=== PATIENT | female | born 1965 | race Caucasian/White ===

== ENCOUNTER 2020-12-22 16:30 | Outpatient (CLI) | payer BC, SELFPAY ==
[2020-12-22 16:45] LABS: Hematocrit 36.5 % (35.0-49.0); Mean Corpuscular HGB Conc 32.9 g/dL (32.0-36.0); Mean Corpuscular Hemoglobin 30.5 pg (27.0-31.0); Mean Corpuscular Volume 92.9 fL (78.0-102.0); Mean Platelet Volume 9.9 fl (9.2-11.8); Platelet Count Result 263 K/mm3 (150-420); Red Blood Count 3.93 M/mm3 (4.20-5.40); Red Cell Distribution Width 12.3 % (11.6-14.4); White Blood Count 5.9 K/mm3 (4.8-10.8)
[2020-12-22 17:21] LABS: Alanine Aminotransferase 22 U/L (14-59); Albumin Level 3.9 g/dL (3.4-5.0); Alkaline Phosphatase 73 U/L (46-116); Anion Gap 10 mmol/L (8-16); Aspartate Amino Transferase 10 U/L (15-37); Bilirubin,Total 0.2 mg/dL (0.00-1.00); Blood Urea Nitrogen 16 mg/dL (7-18); Calcium 9.2 mg/dL (8.5-10.1); Carbon Dioxide 28 mmol/L (21-32); Chloride 106 mmol/L (98-108); Cholesterol 217 mg/dL (0-200); Estimated Glomerular Filt Rate > 60; Glucose 93 mg/dL (70-99); HDL Direct 61 mg/dL (40-60); LDL Cholesterol Calculated 126 mg/dL (<130); Osmolality Calculated 299 mOsm/kg (285-295); Sodium 144 mmol/L (136-145); Total Protein 6.8 g/dL (6.4-8.2); Triglycerides 149 mg/dL (0-150)
[2020-12-22 17:31] LABS: Thyroid Stimulating Hormone Reflex 0.45 u/IU/mL (0.36-3.74)
== END 2020-12-22 16:31 | disposition home or self-care (01) ==
LOC: CHSLAB 16:32
PROVIDERS: PCP Family Medicine; Visit Provider Family Medicine
DX: Z00.00 Encounter for general adult medical examination without abnormal findings (principal); E11.9 Type 2 diabetes mellitus without complications
CPT/HCPCS: 36415; 80053; 80061; 84443; 85027

== ENCOUNTER 2021-03-24 17:13 | Outpatient (NON) | payer BC, SELFPAY | END 2021-03-24 17:14 | disposition home or self-care (01) | LOC: CHSLAB 17:15 | PROVIDERS: Visit Provider Family Medicine | DX: N39.0 Urinary tract infection, site not specified (principal) | CPT/HCPCS: 87086; 87088 ==

== ENCOUNTER 2021-03-29 14:48 | Outpatient (CLI) | payer BC, SELFPAY ==
--- NOTE | ~2021-03-29 | XR_ITS ---
EXAMINATION: XR shoulder RT min 2V DATE: 03/29/2021 15:13 INDICATION: Right shoulder pain. TECHNIQUE: 5 views of right shoulder were obtained. COMPARISON: None. FINDINGS: Bone alignment is normal. No fracture. Glenohumeral joint is normal. There is mild acromioc lavicular joint osteoarthritis. There are airspace opacities at right lung apex. There are changes of fusion procedure in cervical spine. IMPRESSION: 1. Mild osteoarthritis of the acromioclavicular joint. 2. Airspace opacities at right lung apex, which may be scarring or less likely malignancy. Chest radi ographs are recommended. Reviewed, dictated and finalized at location A. PING PRESS OPERATOR IMPRESSION: 1. Mild osteoarthritis of the acromioclavicular joint. 2. Airspace opacities at right lung apex, which may be scarring or less likely malignancy. Chest radiographs are recommended.
== END 2021-03-29 14:49 | disposition home or self-care (01) ==
LOC: CHSIMG 14:49
PROVIDERS: PCP Family Medicine; Visit Provider Family Medicine
DX: M25.511 Pain in right shoulder (principal)
CPT/HCPCS: 73030

== ENCOUNTER 2021-05-31 14:44 | Outpatient (CLI) | payer BC, SELFPAY ==
--- NOTE | ~2021-05-31 | XR_ITS ---
XR elbow RT 2V DATE: 05/31/2021 15:09 INDICATION: Right posterior elbow pain TECHNIQUE: AP and lateral views COMPARISON: None FINDINGS: No fracture or dislocation or joint effusion. No periosteal reaction or bone destruction. IMPRESSION: No fracture or dislocation or joint effusion Reviewed, dictated and finalized at location A. BUYER
--- NOTE | ~2021-05-31 | XR_ITS ---
XR chest 2V DATE: 05/31/2021 15:09 INDICATION: Abnormal findings on shoulder radiograph examination performed 03/29/2021 TECHNIQUE: 2 views COMPARISON: 03/29/2021 right shoulder FINDINGS: Normal heart size. No hilar or mediastinal enlargement. There is ill-defined asymmetric increased density in the lateral right apical area. (On right shoulde r radiographic views of 03/29/2021 there is suggestion of possible [address] thorax examination is recommended to exclude a right apical pulmonary malignant mass versus scarring. There is moderate hyperinflation suggesting obstructive airways disease. Otherwise no pulmonary infiltrate or consolidation, pleural effusion or pulmonary vascular congestion or pneumothorax. Status post lower anterior cervical spine surgical fusion. IMPRESSION: Asymmetric soft tissue density in the lateral right apical area; cannot exclude lung carc inoma. CT thorax is recommended. Dr. Kamara telephoned the report and CT thorax recommendation on 05/31/2021 at 1525 hours to Alverto Mittal. Reviewed, dictated and finalized at location A. E MIXER IMPRESSION: Asymmetric soft tissue density in the lateral right apical area; ca nnot exclude lung carcinoma. CT thorax is recommended. Dr. Kamara telephoned the report and CT thorax recommendation on 05/31/2021 at 152 5 hours to Nurse Yefri Mittal.
== END 2021-05-31 14:45 | disposition home or self-care (01) ==
LOC: CHSIMG 14:47
PROVIDERS: PCP Nurse Practitioner Family; Visit Provider Nurse Practitioner Family
DX: R93.89 Abnormal findings on diagnostic imaging of other specified body structures (principal); M25.521 Pain in right elbow
CPT/HCPCS: 71046; 73070

== ENCOUNTER 2021-06-02 07:02 | Outpatient (CLI) | payer BC, SELFPAY ==
--- NOTE | ~2021-06-02 | CT_ITS ---
EXAMINATION: CT diagnostic chest w con DATE: 06/02/2021 07:48 INDICATION: R93.89 - Abnormal findings on diagnostic imaging of other... abn CXR, no chest complaints , COVID Mar 2021, prev smoker TECHNIQUE: Computed tomography (CT) of the chest was performed without intravenous contrast. Addition al 3D reconstructions utilizing coronal maximum intensity projection (MIP) were performed. Automated exposure control and iterative reconstruction technique were employed. The dose-length product was 25 3.51 mGy-cm. COMPARISON: None FINDINGS: Peripheral small wedge-shaped and bandlike airspace opacities with appearance most consistent with pl eural parenchymal scarring at the posterior apices of the lungs, right greater than left. No other smith spicious pulmonary nodules, pneumonia, pulmonary edema or pleural effusion. Heart size is normal. No pericardial effusion. Thoracic aorta is normal in caliber with no dissection. No pathologically enlar ged thoracic lymphadenopathy. A couple 8 mm low-attenuation likely hepatic cysts at segment 6 of the liver. Minimal to mild chronic-appearing anterior wedging at T10-T12. Instrumented anterior spinal fu margarito at C5-C6 and C6-C7. IMPRESSION: 1. Peripheral opacities at the posterior bilateral apices of the lungs with location and appearance t ypical for pleural-parenchymal scarring. Suspicion for malignancy is low but could consider 6 month f ollow-up low-dose noncontrast chest CT if prior outside imaging is unavailable to document stability. Reviewed, dictated and finalized at location A. STANT MANAGER OF OPERATIONS IMPRESSION: 1. Peripheral opacities at the posterior bilateral apices of the lungs with loc ation and appearance typical for pleural-parenchymal scarring. Suspicion for ma lignancy is low but could consider 6 month follow-up low-dose noncontrast chest CT if prior outside imaging is unavailable to document stability.
== END 2021-06-02 07:03 | disposition home or self-care (01) ==
LOC: CHSIMG 07:03
PROVIDERS: PCP Family Medicine; Visit Provider Nurse Practitioner Family
DX: R93.89 Abnormal findings on diagnostic imaging of other specified body structures (principal)
CPT/HCPCS: 71260; Q9967

== ENCOUNTER 2022-03-17 09:49 | Emergency (ER) | payer BC, SELFPAY ==
[2022-03-17 09:50] VITALS: BP 121/69; PULSE 87; RESP 20; O2SAT 100
--- NOTE | 2022-03-17 10:04 | ED.WOUNDLAC ---
HPI - Wound/Laceration General Chief Complaint: Wound/Laceration Stated Complaint: Cut thumb Time Seen by Provider: 03/17/22 10:04 Source: patient and RN notes reviewed Mode of arrival: ambulatory Limitations: no limitations History of Present Illness Onset (ago): minute(s) (20) Extremity Location: Left: hand (thumb) Place: work Patient tetanus UTD: Yes Context: accidental Associated symptoms: none Treatments prior to arrival: bandage Related Data Home Medications Medication Instructions Recorded Confirmed No Home Medications 03/17/22 03/17/22 Allergies Allergy/AdvReac Type Severity Reaction Status Date / Time Penicillins Allergy Severe Hives Verified 12/22/21 10:18 Review of Systems Review of Systems: All systems reviewed & are unremarkable except as noted in HPI and below PMFSH Past Medical History Medical History Bilateral calcaneal spurs Low back pain MDD (major depressive disorder) Shoulder pain Spinal stenosis Surgical History Surgical History History of neck surgery Social History Social History Smoking status: Former smoker Additional smoking assessment comments: Quit 7yrs ago. 11 pack year history. Alcohol intake: never Substance use: never Substance use type: does not use Exam Const: General: healthy appearing, no acute distress and alert Nutritional Appearance: well nourished Orientation/consciousness: patient oriented x3 Limitations: no limitations HENMT: Head: normal to inspection Ears: external ears normal Face and sinus: normal facial exam Eyes: Conjunctivae: conjunctivae normal Pupils: Equal, round and reactive pupils present EOM: EOMs intact bilaterally Neck: Neck: normal visual inspection Chest: Chest palpation & inspection: normal inspection of the chest Resp: Effort & Inspection: normal respiratory effort Auscultation: clear to auscultation bilaterally Cardio: Rate: regular rate Rhythm: regular rhythm GI: GI Palp: Yes Soft to palpation and No Tenderness to palpation present (GI) Auscultation: normal bowel sounds Back/Spine/Pelvis: Cervical Spine: cervical ROM normal Thoracic/Lumbar Spine: thoraco-lumbar ROM normal Skin: General skin exam: normal color Rashes: no rashes Wounds: wounds noted ( over the distal phalanx horizontally) laceration left palmar thumb size (2.5) and margins well approximated Neuro: General: patient oriented x3, moves all extremities, no focal motor deficits and CN's II-XI intact bilaterally Speech: normal speech Gait exam (Neuro): Normal gait present Extrem: General: normal to inspection and no clubbing, cyanosis or edema Psych: Mental Status: mental status grossly normal Affect: normal affect Attitude: cooperative Course Vital Signs Vital signs: Vital Signs Pulse Rate 87 03/17/22 09:50 Respiratory Rate 20 03/17/22 09:50 Blood Pressure 121/69 03/17/22 09:50 Pulse Oximetry 100 03/17/22 09:50 Oxygen Delivery Room Air 03/17/22 09:50 Temperature 36.9 C 03/17/22 10:34 Pulse Rate 84 03/17/22 10:34 Respiratory Rate 20 03/17/22 10:34 Blood Pressure 121/69 03/17/22 10:34 Pulse Oximetry 97 03/17/22 10:34 Oxygen Delivery Room Air 03/17/22 10:34 Procedures Laceration Laceration 1: Date: 03/17/22 Site: hand Side (If applicable): left (thumb) Size (cm): 2.5 Description: linear and clean Depth: simple, single layer Local Anesthetic: lidocaine 1% ( digital nerve block) Amount of anesthesia used (mL): 5 Pre-repair: wound explored and irrigated ====== Skin Level ====== Skin layer closed with: nylon Size (cm): 4-0 Number of sutures: 6 Technique: running ====== Subcutaneous Layer ====== ====== Muscle Layer ====== =====
[2022-03-17 10:10] VITALS: TEMP 36.7
[2022-03-17] MEDS: LIDOCAINE HCL 1% LOCAL INJ 10 ML VIAL INFILTRATE (10:26)
[2022-03-17] MEDS: NEOMYCIN/POLYMYXIN/BACITRACIN OINTMENT PACKET 1 PACKET TOPICAL (10:33)
[2022-03-17 10:34] VITALS: BP 121/69; PULSE 84; RESP 20; TEMP 36.9; O2SAT 97
== END 2022-03-17 10:42 | disposition home or self-care (01) ==
LOC: CHSED 10:35
PROVIDERS: Emergency Provider Emergency Medicine; PCP Family Medicine
DX: S61.012A Laceration without foreign body of left thumb without damage to nail, initial encounter (principal); W45.8XXA Other foreign body or object entering through skin, initial encounter
CPT/HCPCS: 12001; 99282

== ENCOUNTER 2022-03-20 14:40 | Outpatient (CLI) | payer BC, SELFPAY ==
--- NOTE | ~2022-03-20 | XR_ITS ---
XR shoulder LT min 2V DATE: 03/20/2022 15:18 INDICATION: Left shoulder pain TECHNIQUE: 4 views COMPARISON: None FINDINGS: No fracture or dislocation, periosteal reaction or bone destruction. No abnormal soft tissu e calcification. Status post anterior lower cervical spine surgical fusion. IMPRESSION: No fracture or dislocation Reviewed, dictated and finalized at location A. ME TANNING DRUM OPERATOR IMPRESSION: No fracture or dislocation
== END 2022-03-20 14:41 | disposition home or self-care (01) ==
PROVIDERS: PCP Family Medicine; Visit Provider Family Medicine
DX: M25.512 Pain in left shoulder (principal); M54.2 Cervicalgia
CPT/HCPCS: 73030

== ENCOUNTER 2022-07-27 14:59 | Outpatient (CLI) | payer BC, SELFPAY ==
--- NOTE | ~2022-07-27 | XR_ITS ---
XR_CERV2-3V_CR 07/27/2022 15:26 Indication: Radiculopathy. Procedure: 3 view cervical spine Comparison: No prior studies for comparison. Findings: There is straightening of cervical lordosis. There are fusion changes with discectomy at C5 -6 and C6-7. There is subtle degenerative anterolisthesis at C3-4 and C4-5. No prevertebral soft tiss ue swelling. There is multilevel facet and uncinate hypertrophy. Lung apices are normal. Odontoid pro cess is unremarkable. Impression: 1: Mild cervical spondylosis with fusion at C4 C5-6 and C6-7. Reviewed, dictated and finalized at location A. Impression: 1: Mild cervical spondylosis with fusion at C4 C5-6 and C6-7.
== END 2022-07-27 15:00 | disposition home or self-care (01) ==
LOC: CHSIMG 15:01
PROVIDERS: PCP Family Medicine; Visit Provider Family Medicine
DX: M54.12 Radiculopathy, cervical region (principal); M43.02 Spondylolysis, cervical region
CPT/HCPCS: 72040

== ENCOUNTER → 2022-08-14 14:29 | Outpatient (CLI) | payer BC, SELFPAY ==
--- NOTE | ~2022-08-14 | CT_ITS ---
EXAMINATION: CT cervical spine w con DATE: 08/14/2022 14:55 INDICATION: Radiculopathy, cervical region. TECHNIQUE: Computed tomography (CT) of the cervical spine was performed with 100 mL Omnipaque 350 int ravenous contrast. Automated exposure control and iterative reconstruction technique were employed. T he dose-length product was 223.99 mGy-cm. COMPARISON: Cervical spine radiographs 07/27/2022, chest CT 06/02/2021 FINDINGS: Again seen is scarring at the lung apices. There is a trace left mastoid effusion. There is 2 mm anterolisthesis of C3 on C4 and C4 on C5. There are changes of anterior fusion procedures at C5 -C6 and C6-C7 with interbody devices and anterior plates and screws with bridging bone. There is mild ly decreased disc height at C4-C5. The following disc levels are specifically discussed: C2-C3: There is mild bilateral uncovertebral joint osteoarthritis. There is mild left facet joint ost eoarthritis. There is ankylosis of right facet joint with mild hypertrophy. There is no neural forami nal stenosis. There is no central canal stenosis. C3-C4: There is mild bilateral uncovertebral joint osteoarthritis. There is severe right and moderate left facet joint osteoarthritis. There is mild right neural foraminal stenosis. There is no central canal stenosis. C4-C5: There is mild bilateral uncovertebral joint osteoarthritis. There is severe left facet joint o steoarthritis. There is mild left neural foraminal stenosis. There is no central canal stenosis. C5-C6: There is severe bilateral uncovertebral joint osteoarthritis. There is mild bilateral facet yoni int osteoarthritis. There is mild bilateral neural foraminal stenosis. There is mild central canal st enosis. C6-C7: There is mild bilateral uncovertebral joint osteoarthritis. There is mild bilateral facet join t osteoarthritis. There is no neural foraminal stenosis. There is mild central canal stenosis. C7-T1: There is no uncovertebral joint osteoarthritis. There is severe right and moderate left facet joint osteoarthritis. There is no neural foraminal stenosis. There is no central canal stenosis. IMPRESSION: 1. Anterior fusion procedures at C5-C6 and C6-C7. 2. Mild cervical spondylosis. Reviewed, dictated and finalized at location A.
== END ==
PROVIDERS: PCP Family Medicine; Visit Provider Family Medicine
DX: M47.812 Spondylosis without myelopathy or radiculopathy, cervical region (principal); Z98.1 Arthrodesis status
CPT/HCPCS: 72126; Q9967

== ENCOUNTER 2024-07-28 06:45 | Outpatient (CLI) | payer BC, SELFPAY ==
--- NOTE | ~2024-07-28 | MR_ITS ---
EXAMINATION: MRA neck wo con DATE: 07/28/2024 07:35 INDICATION: Neck problems. Spinal stenosis and cervical radiculopathy. TECHNIQUE: Magnetic resonance angiography (MRA) of the neck was performed without intravenous contras t. Sequences included axial 2D-time of flight T1-weighted FSPGR and coronal T1-weighted FSPGR without and with intravenous contrast. COMPARISON: None. FINDINGS: There is 0% stenosis of the right carotid bulb relative to normal distal artery lumen diameter (NASCE T criteria). There is 0% stenosis of the left carotid bulb relative to normal distal artery lumen di ameter. Right vertebral artery is dominant. No evident hemodynamically significant stenosis in the bi lateral vertebral arteries, the basilar or bilateral intracranial internal carotid arteries. The bila teral A1 and P1 segments are patent. There is metallic magnetic field artifact consistent with instru mented fixation for a C5-C7 anterior spinal fusion as seen on prior CT dated 08/14/2022. IMPRESSION: 1. 0% stenosis of the right carotid bulb relative to normal distal artery lumen diameter (NASCET crit eria). 2. 0% stenosis of the left carotid bulb relative to normal distal artery lumen diameter. Reviewed, dictated and finalized at location A. IMPRESSION: 1. 0% stenosis of the right carotid bulb relative to normal distal artery lumen diameter (NASCET criteria). 2. 0% stenosis of the left carotid bulb relative to normal distal artery lumen diameter.
== END 2024-07-28 06:46 | disposition home or self-care (01) ==
PROVIDERS: PCP Nurse Practitioner Family; Visit Provider Nurse Practitioner Family
DX: M48.00 Spinal stenosis, site unspecified (principal); M54.12 Radiculopathy, cervical region; Z98.1 Arthrodesis status
CPT/HCPCS: 70547

== ENCOUNTER 2024-08-16 08:48 | Outpatient (CLI) | payer BC, SELFPAY ==
--- NOTE | ~2024-08-16 | MR_ITS ---
MRI of the cervical spine Clinical History: Spinal stenosis Technique: Axial T2-weighted and gradient images, and sagittal T1-weighted, T2-weighted, and STIR anahi ges were acquired. Findings: There is anterior and interbody fusion from C5 to C6 and C6-C7. No fracture evident. There is straightening of the normal cervical lordosis. No suspicious bone marrow signal abnormality seen. At C2-C3, there is no disc bulge or herniation. No spinal canal stenosis, cord compression, or neural foraminal narrowing. At C3-C4, there is no disc bulge or herniation. No spinal canal stenosis or cord compression. No neur al foraminal narrowing despite minimal facet hypertrophy. At C4-C5, there is minimal grade 1 anterolisthesis. There is minimal disc osteophyte complex with lef t facet arthropathy. No definite canal stenosis, cord compression, or neural foraminal narrowing. At C5-C6, there is no definite disc bulge. No spinal canal stenosis, cord compression, or definite ne ural foraminal narrowing. At C6-C7, there is minimal disc bulge. No spinal canal stenosis, cord compression, or neural foramina l narrowing. No abnormal signal seen in the spinal cord. Paravertebral soft tissues are otherwise unremarkable. Impression: Anterior fusion from C5 to C7, as above. Mild degenerative spondylitic changes, as above. Minimal grade 1 anterolisthesis of C4 over C5. Reviewed, dictated and finalized at [facility]. Impression: Anterior fusion from C5 to C7, as above. Mild degenerative spondylitic changes, as above. Minimal grade 1 anterolisthesis of C4 over C5.
== END 2024-08-16 08:49 | disposition home or self-care (01) ==
PROVIDERS: PCP Nurse Practitioner Family; Visit Provider Nurse Practitioner Family
DX: M48.00 Spinal stenosis, site unspecified (principal); Z98.1 Arthrodesis status; M47.22 Other spondylosis with radiculopathy, cervical region
CPT/HCPCS: 72141

== ENCOUNTER 2024-10-27 10:53 | Outpatient (RCR) | payer BC, MEDICAID, SELFPAY ==
--- NOTE | 2024-09-29 07:31 | OPREHPOC ---
Outpatient Therapy Plan of Care This is a Multidisciplinary Plan of Care that may contain components documented by all disciplines (PT, OT, and ST.) PT Problem 1 PT Problem #1 Knowledge Deficit PT Goal 1 Goal / Goal Update [place] with HEP Target Visit 4 PT Goal 2 Goal / Goal Update Report no pain greater than 2/10 for 2 consecutive weeks Target Visit 8 PT Problem 2 PT Problem #2 Pain PT Goal 1 Goal / Goal Update 1. Report 50% improvement in quality and quantity of sleep 2. Report 50% improvement in radicular symptoms into hands Target Visit 8 PT Problem 3 PT Problem #3 Impaired Range of Motion PT Goal 1 Goal / Goal Update Demonstrate improved cervical rotation to equal range bilaterally Target Visit 8
--- NOTE | 2024-09-29 07:31 | PTOPEVAL1 ---
Assessment and note entered by Fred Fisher, PT Evaluation Information Assessment Status Evaluation Diagnosis Cervical Radiculopathy ICD-10 Condition Codes (PT) Cervicalgia M54.2 Subjective Information Reports that she has a neck fusion at levels C2-C6 . On her C4-C5 she has a disconnection issues and severe arthritis in her lower cervical spine. She has not been sleeping well and has been having a lot of pain at night. Her flexion and extension are very painful and tight. 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 She frequently has numbness and tingling in her hands and feet. She has frequent headaches as well. Assessment PT Clinical Summary Patient presents with signs and symptoms of cervical radiculopathy with history of cervical fusion. Limitation in cervical motion noted with pain at rest and with motion. Patient will benefit form skilled therapy to address deficits to improve comfort, sleeping, and daily function pain free. Plan of Care Interventions Manual Therapy,Neuro Re-education,Therapeutic Activities,Therapeutic Exercise PT Services Indicated Yes Treatment Frequency and 2x/week for 8 visits Duration These treatments will address the objective and functional deficits as defined above. The patient will be advanced safely and appropriately in order for the patient to progress towards his/her prior level of function. Additional exercises will be introduced and as well as a comprehensive home exercise program upon discharge, if needed, ?to ensure carryover of functional gains achieved in the clinic. This treatment plan has been reviewed and agreement upon by the patient.
--- NOTE | 2024-10-24 16:20 | PCPTNOTE ---
Patient requested to cancel via [employer]. No reason given.
--- NOTE | 2024-10-29 16:31 | PCPTNOTE ---
Patient requested to reschedule on [employer]. Rehab secretary bookkeeper called.
--- NOTE | 2024-11-04 16:13 | PCPTNOTE ---
Patient was a No Show for her appointment this date for a progress note. She cancelled appointment through portal and when reached out to, stated that she was coming. Patient instead no showed.
--- NOTE | 2024-12-22 08:32 | PTOPDC ---
Assessment and note entered by Fred Fisher, PT Evaluation Information Assessment Status Discharge - Pt Not Present Diagnosis Cervical Radiculopathy ICD-10 Condition Codes (PT) Cervicalgia M54.2 Subjective Information Reports that she has a neck fusion at levels C2-C6 . On her C4-C5 she has a disconnection issues and severe arthritis in her lower cervical spine. She has not been sleeping well and has been having a lot of pain at night. Her flexion and extension are very painful and tight. 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 She frequently has numbness and tingling in her hands and feet. She has frequent headaches as well. Assessment PT Clinical Summary Patient No Show/No Call for last progress note. Attended 1 therapy treatment. Will be discharged at this time secondary to non compliance. Plan of Care PT Services Indicated Yes
== END 2024-12-22 11:24 | disposition home or self-care (01) ==
LOC: ANHGOSHPT 10:53
PROVIDERS: PCP Nurse Practitioner Family; Visit Provider Nurse Practitioner Family
DX: M54.12 Radiculopathy, cervical region (principal); M47.812 Spondylosis without myelopathy or radiculopathy, cervical region
CPT/HCPCS: 97110; 97112; 97140; 97161